=== PATIENT | female | born 1965 | race Caucasian/White ===

== ENCOUNTER 2024-04-08 01:44 | Day surgery (SDC) | payer OTHER ==
[~2024-04-08 01:44] MED LIST: AMOCLA875 PO; Buspirone HCl15 MG PO; CHLO25 PO; CRUTCH4 USE; GABA300 PO; HYDHCL25 PO; K-Dur20 MEQ PO; MULVITMINE PO; MUPIROCIN1 G1 TOP; NARCAN4 M1; OXYC5 PO; PROACE100 PO; PROP10 PO; QUET300 PO; SPIR25 PO; SUMA25 PO; VISBIOME 112.51 EACH PO; Zofran Odt4 MG SL
== END 2024-04-09 02:39 | disposition home or self-care (01) ==
LOC: WOUND 01:44
DX: S81.801A Unspecified open wound, right lower leg, initial encounter (principal)
CPT/HCPCS: G0463

== ENCOUNTER 2024-04-15 01:52 | Day surgery (SDC) | payer OTHER ==
[2024-04-15] MEDS ORDERED: Lidocaine HCl 4% Topical Soln 50 ML BTL ONE (12:35)
== END 2024-04-15 22:43 | disposition home or self-care (01) ==
LOC: WOUND 01:52
DX: S81.801D Unspecified open wound, right lower leg, subsequent encounter (principal); L03.115 Cellulitis of right lower limb; X58.XXXD Exposure to other specified factors, subsequent encounter
CPT/HCPCS: G0463

== ENCOUNTER 2024-04-22 02:58 | Day surgery (SDC) | payer OTHER ==
[2024-04-22] MEDS ORDERED: Lidocaine HCl 4% Topical Soln 50 ML BTL ONE (12:34)
== END 2024-04-22 23:10 | disposition home or self-care (01) ==
LOC: WOUND 02:58
DX: L03.115 Cellulitis of right lower limb (principal)

== ENCOUNTER 2024-04-29 03:20 | Day surgery (SDC) | payer OTHER ==
[2024-04-29] MEDS ORDERED: Lidocaine HCl 4% Topical Soln 50 ML BTL ONE (12:29)
== END 2024-04-29 23:00 | disposition home or self-care (01) ==
LOC: WOUND 03:20
DX: L03.115 Cellulitis of right lower limb (principal); I96 Gangrene, not elsewhere classified; G89.21 Chronic pain due to trauma; E87.6 Hypokalemia; D64.89 Other specified anemias
CPT/HCPCS: 36415; 80053; 85025; 87070; 87075; 87077; 87186; 87205; G0463

== ENCOUNTER 2024-05-06 04:51 | Day surgery (SDC) | payer OTHER ==
[2024-05-06] MEDS ORDERED: Lidocaine HCl 4% Topical Soln 50 ML BTL ONE (13:04)
== END 2024-05-06 23:00 | disposition home or self-care (01) ==
LOC: WOUND 04:51
DX: L03.115 Cellulitis of right lower limb (principal); I96 Gangrene, not elsewhere classified
CPT/HCPCS: G0463

== ENCOUNTER 2024-05-13 04:37 | Day surgery (SDC) | payer OTHER ==
[2024-05-13] MEDS ORDERED: Lidocaine HCl 4% Topical Soln 5 MLUDC ONE (14:20)
== END 2024-05-13 23:22 | disposition home or self-care (01) ==
LOC: WOUND 04:37
DX: L03.115 Cellulitis of right lower limb (principal); I96 Gangrene, not elsewhere classified
CPT/HCPCS: A9270

== ENCOUNTER 2024-07-11 21:13 | Inpatient (IN) | payer OTHER ==
[~2024-07-11] VITALS: Ht 175.3 cm; Wt 73.5 kg
[~2024-07-11 21:13] MED LIST changes: +IMITREX100 MG PO; -SUMA25 PO
[2024-07-11 21:51] LABS: BASOPHILS ABSOLUTE AUTO 0.04 K/mm3 (0.00-0.23); BASOPHILS PERCENT AUTO 0 % (0-2); EOSINOPHILS ABSOLUTE AUTO 0.04 K/mm3 (0.00-0.68); EOSINOPHILS PERCENT AUTO 0 % (0-6); Hematocrit 37.9 % (33.0-51.0); Hemoglobin 12.6 g/dL (11.5-16.0); IMMATURE GRAN ABSOLUTE AUTO 0.04 K/mm3 (0.00-0.10); IMMATURE GRAN PERCENT AUTO 0 % (0-1); LYMPHOCYTES ABSOLUTE AUTO 1.52 K/mm3 (0.84-5.20); LYMPHOCYTES PERCENT AUTO 11 % (21-46); MONOCYTES ABSOLUTE AUTO 0.52 K/mm3 (0.16-1.47); MONOCYTES PERCENT AUTO 4 % (4-13); Mean Corpuscular HGB 28.2 pg (26.0-34.0); Mean Corpuscular HGB Conc 33.2 g/dL (31.5-36.5); Mean Corpuscular Volume 85 fL (80-100); NEUTROPHILS ABSOLUTE AUTO 11.67 K/mm3 (1.96-9.15); NEUTROPHILS PERCENT AUTO 84 % (41-73); Platelet Count 288 K/mm3 (150-400); RDW Coefficient Variation 13.3 % (11.7-14.2); RDW Standard Deviation 41.2 fL (35.1-46.3); Red Blood Cell Count 4.47 M/mm3 (3.80-5.20); White Blood Cell Count 13.83 K/mm3 (4.00-11.30)
[2024-07-11 22:11] LABS: Albumin, Blood 3.5 g/dL (3.4-5.0); Albumin/Globulin Ratio 0.7 (0.8-1.8); Bilirubin, Total 0.3 mg/dL (0.1-1.0); Bun/Creatinine Ratio 22.2 (12.0-20.0); Calcium, Blood 9.2 mg/dL (8.5-10.1); Creatinine, Blood 0.81 mg/dL (0.40-1.00); Globulin, Blood 5.2 g/dL (2.2-4.0); Potassium, Blood 3.3 mmol/L (3.5-5.5); Total Protein, Blood 8.7 g/dL (6.4-8.2)
[2024-07-12] MEDS ORDERED: Morphine Sulfate 4 MG/1 ML Injection ONE (00:03)
[2024-07-12] MEDS ORDERED: Morphine Sulfate 4 MG/1 ML Injection IV ONE (00:05)
[2024-07-12] MEDS ORDERED: Acetaminophen 325 MG TABLET PO ONE (01:15)
[2024-07-12] MEDS ORDERED: Vancomycin HCL 1,250 MG in NS 250 ML IV ONE (01:20)
[2024-07-12] MEDS ORDERED: NS 1,000 ML IV SCH ×2 (01:20→04:30)
[2024-07-12] MEDS ORDERED: Piperacillin/Tazobactam Sod 4.5 GM in NS 100 ML IV ONE (01:20)
[2024-07-12] MEDS ORDERED: FLU VACC TS2024-25(6MOS UP)/PF 45 MCG/0.5 ML SYRINGE IM ONE (04:30)
[2024-07-12 06:42] LABS: BASOPHILS ABSOLUTE AUTO 0.04 K/mm3 (0.00-0.23); BASOPHILS PERCENT AUTO 0 % (0-2); EOSINOPHILS ABSOLUTE AUTO 0.01 K/mm3 (0.00-0.68); EOSINOPHILS PERCENT AUTO 0 % (0-6); Hematocrit 32.3 % (33.0-51.0); Hemoglobin 10.8 g/dL (11.5-16.0); IMMATURE GRAN ABSOLUTE AUTO 0.08 K/mm3 (0.00-0.10); IMMATURE GRAN PERCENT AUTO 1 % (0-1); LYMPHOCYTES ABSOLUTE AUTO 1.64 K/mm3 (0.84-5.20); LYMPHOCYTES PERCENT AUTO 12 % (21-46); MONOCYTES ABSOLUTE AUTO 0.91 K/mm3 (0.16-1.47); MONOCYTES PERCENT AUTO 7 % (4-13); Mean Corpuscular HGB 28.4 pg (26.0-34.0); Mean Corpuscular HGB Conc 33.4 g/dL (31.5-36.5); Mean Corpuscular Volume 85 fL (80-100); NEUTROPHILS PERCENT AUTO 80 % (41-73); Platelet Count 214 K/mm3 (150-400); RDW Coefficient Variation 13.4 % (11.7-14.2); RDW Standard Deviation 41.7 fL (35.1-46.3); White Blood Cell Count 13.48 K/mm3 (4.00-11.30)
[2024-07-12 07:05] LABS: Albumin, Blood 2.7 g/dL (3.4-5.0); Albumin/Globulin Ratio 0.6 (0.8-1.8); Bilirubin, Total 0.7 mg/dL (0.1-1.0); Calcium, Blood 8.3 mg/dL (8.5-10.1); Creatinine, Blood 0.68 mg/dL (0.40-1.00); Globulin, Blood 4.2 g/dL (2.2-4.0); Total Protein, Blood 6.9 g/dL (6.4-8.2)
[2024-07-12] MEDS ORDERED: Acetaminophen 500 MG Tab PO PRN (07:50)
[2024-07-12] MEDS ORDERED: Enoxaparin 40 MG/0.4 ML SYR SC SCH (09:00)
[2024-07-12] MEDS ORDERED: Piperacillin/Tazobactam Sod 4.5 GM in NS 100 ML IV SCH ×2 (10:00→20:00)
[2024-07-12] MEDS ORDERED: OxyCODONE HCL 5 MG TAB PO PRN ×2 (11:10→16:45)
[2024-07-12] MEDS ORDERED: Vancomycin HCL 1,000 MG in NS 250 ML IV SCH (14:00)
[2024-07-12] MEDS ORDERED: OxyCODONE HCL 5 MG TAB PO SCH (16:44)
[2024-07-12 17:51] VITALS: BP 162/103
[2024-07-12] MEDS ORDERED: HyDROXyzine HCl 25 MG Tab PO PRN (18:40)
[2024-07-12 18:52] LABS: Bun/Creatinine Ratio 18.1 (12.0-20.0); Calcium, Blood 8.7 mg/dL (8.5-10.1); Creatinine, Blood 0.66 mg/dL (0.40-1.00); Magnesium, Blood 2.1 mg/dL (1.6-2.4); Potassium, Blood 3.2 mmol/L (3.5-5.5)
--- NOTE | 2024-07-12 18:58 | NUR ---
ADMISSION: PT ARRIVES FROM ER A&O, TRANSFERS SELF FROM [facility] TO BED, IMMEDIATELY STARTS ASKING FOR MEDICATION FOR HER ANXIETY. PROVIDER NOTIFIED, TO BEDSIDE, TO PLACE NEW ORDERS. PT DENIES SOB/CP, O2 SATS >92% ON RA, VSS. PT W/MULTIPLE SORES TO BACK AND RLE, IMAGING HAS BEEN COMPLETED, CT SCAN RESULTS PENDING TO HELP DEVELOP PLAN OF CARE. PT PROVIDED WITH FOOD AND BEVERAGE WHILE PLAN IS PENDING.
[2024-07-12] MEDS ORDERED: Potassium Chloride 20 MEQ TabCR PO ONE (19:40)
[2024-07-12] MEDS ORDERED: Morphine Sulfate 4 MG/1 ML Injection IV PRN (19:45)
[2024-07-12 20:07] VITALS: BP 140/91
[2024-07-12] MEDS ORDERED: Potassium Chloride 10 Meq Tablet SA PO ONE (21:30)
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
[2024-07-12 23:40] LABS: U Amphetamine Screen DETECTED; U Methamphetamine Screen DETECTED
[2024-07-12 23:41] LABS: U Barbituate Screen Not Detected; U Benzodiazapine Screen Not Detected; U Buprenorphine Screen Not Detected; U Cannabinoids Screen DETECTED; U Cocaine Screen Not Detected; U Methadone Screen Not Detected; U Opiates Screen DETECTED; U Oxycodone Screen DETECTED; U Phencyclidine Screen Not Detected
[2024-07-13] VITALS (12 sets, daily range): BP systolic 126–167; BP diastolic 74–109
[2024-07-13] MEDS ORDERED: NS 1,000 ML IV SCH
[2024-07-13] MEDS ORDERED: Ondansetron HCl 2 MG / ML 2ML Vial IV PRN (03:25)
--- NOTE | 2024-07-13 06:50 | NUR ---
SHIFT SUMMARY NO ACUTE EVENTS SINCE LAST NOTE. PT RESTED QUIETLY. ONE EPISODE OF NAUSEA, TREATED PER EMAR. DRESSING C/D/I.
[2024-07-13] MEDS ORDERED: Vancomycin HCL 1,000 MG in NS 250 ML IV SCH (08:00)
[2024-07-13 08:58] LABS: BASOPHILS ABSOLUTE AUTO 0.04 K/mm3 (0.00-0.23); BASOPHILS PERCENT AUTO 1 % (0-2); EOSINOPHILS ABSOLUTE AUTO 0.12 K/mm3 (0.00-0.68); EOSINOPHILS PERCENT AUTO 2 % (0-6); Hematocrit 35.7 % (33.0-51.0); Hemoglobin 11.8 g/dL (11.5-16.0); IMMATURE GRAN ABSOLUTE AUTO 0.02 K/mm3 (0.00-0.10); IMMATURE GRAN PERCENT AUTO 0 % (0-1); LYMPHOCYTES ABSOLUTE AUTO 2.22 K/mm3 (0.84-5.20); LYMPHOCYTES PERCENT AUTO 33 % (21-46); MONOCYTES ABSOLUTE AUTO 0.64 K/mm3 (0.16-1.47); MONOCYTES PERCENT AUTO 10 % (4-13); Mean Corpuscular HGB 28.2 pg (26.0-34.0); Mean Corpuscular HGB Conc 33.1 g/dL (31.5-36.5); Mean Corpuscular Volume 85 fL (80-100); NEUTROPHILS ABSOLUTE AUTO 3.71 K/mm3 (1.96-9.15); NEUTROPHILS PERCENT AUTO 55 % (41-73); Platelet Count 236 K/mm3 (150-400); RDW Coefficient Variation 13.2 % (11.7-14.2); RDW Standard Deviation 41.6 fL (35.1-46.3); Red Blood Cell Count 4.18 M/mm3 (3.80-5.20); White Blood Cell Count 6.75 K/mm3 (4.00-11.30)
[2024-07-13 09:24] LABS: Bun/Creatinine Ratio 12.9 (12.0-20.0); Calcium, Blood 9.1 mg/dL (8.5-10.1); Creatinine, Blood 0.7 mg/dL (0.40-1.00); Potassium, Blood 3.4 mmol/L (3.5-5.5)
[2024-07-13] MEDS ORDERED: Lactated Ringer's 1,000 ML IV SCH (11:45)
[2024-07-13] MEDS ORDERED: Midazolam HCl 1MG / ML 2ML Vial ONE (14:01)
[2024-07-13] MEDS ORDERED: propofoL 20 ML IV ONE (14:01)
[2024-07-13] MEDS ORDERED: FentaNYL Citrate 50 MCG/ML 2 ML Injection ONE (14:01)
--- NOTE | 2024-07-13 14:49 | NUR ---
DR. BLACKWELL AT TO DO BLOCK PROCEDURE ON RLE. PT PLACED ON 2L NC AT 1450. 1MG IV VERSED GIVEN AT 1459. PROCEDURE START AT 1502. PT GIVEN 1MG IV VERSED AT 1508. PROCEDURE END AT 1511. PT TOLERATED PROCEDURE WELL. VSS THROUGHOUT. BLOCK NOTE COMPLETED.
[2024-07-13] MEDS ORDERED: Ketamine HCl 100 MG / ML 5ML Vial ONE (15:22)
[2024-07-13] MEDS ORDERED: Ondansetron HCl 2 MG / ML 2ML Vial ONE (16:05)
[2024-07-13] MEDS ORDERED: Dexamethasone Sod Phos 10 MG/ML 1ML VIAL ONE (16:05)
[2024-07-13] MEDS ORDERED: Bupivacaine HCl 0.25% 30 ML Injection ONE (16:05)
--- NOTE | 2024-07-13 17:55 | NUR ---
SHIFT SUMMARY PT IS ALERT AND ORIENTED X 4, SHE WAS ANXIOUS PRIOR TO I&D PROCEDURE BUT SINCE ARRIVAL TO PCU AT APPROX. 1700, SHE HAS APPEARED MUCH MORE RELAXED. VSS. RLE DRESSING APPEARS D/C/I, SHE IS WEIGHT BEARING TOLERATED ON R EXTREMETY. SHE HAS CALLED APPROPRIATELY. THIS RN TOOK WOUND PHOTOS THIS AM AND PHOTOS ARE IN CHART. SHE HAS DENIED PAIN SINCE ARRIVING FROM I&D PROCEDURE. CALL LIGHT IS W/IN REACH. BED ALARM ON.
[2024-07-14 07:48] LABS: BASOPHILS ABSOLUTE AUTO 0.02 K/mm3 (0.00-0.23); BASOPHILS PERCENT AUTO 0 % (0-2); EOSINOPHILS PERCENT AUTO 0 % (0-6); Hematocrit 33.3 % (33.0-51.0); IMMATURE GRAN ABSOLUTE AUTO 0.02 K/mm3 (0.00-0.10); IMMATURE GRAN PERCENT AUTO 0 % (0-1); LYMPHOCYTES ABSOLUTE AUTO 1.41 K/mm3 (0.84-5.20); LYMPHOCYTES PERCENT AUTO 22 % (21-46); MONOCYTES ABSOLUTE AUTO 0.43 K/mm3 (0.16-1.47); MONOCYTES PERCENT AUTO 7 % (4-13); Mean Corpuscular HGB 27.7 pg (26.0-34.0); Mean Corpuscular Volume 84 fL (80-100); Mean Platelet Volume 9.4 fL (9.1-12.4); NEUTROPHILS ABSOLUTE AUTO 4.68 K/mm3 (1.96-9.15); NEUTROPHILS PERCENT AUTO 71 % (41-73); Platelet Count 252 K/mm3 (150-400); RDW Coefficient Variation 12.8 % (11.7-14.2); RDW Standard Deviation 39.2 fL (35.1-46.3); Red Blood Cell Count 3.97 M/mm3 (3.80-5.20); White Blood Cell Count 6.56 K/mm3 (4.00-11.30)
[2024-07-14 07:54] LABS: Bun/Creatinine Ratio 29.8 (12.0-20.0); Calcium, Blood 8.9 mg/dL (8.5-10.1); Creatinine, Blood 0.71 mg/dL (0.40-1.00); Potassium, Blood 3.6 mmol/L (3.5-5.5)
[2024-07-14 07:57] LABS: Vancomycin, Trough 21.3 ug/mL (5.0-10.0)
[2024-07-14 08:03] VITALS: BP 148/88
--- NOTE | 2024-07-14 09:40 | NUR ---
ASSUMPTION NOTE: THIS RN TO ASSUME CARE OF PATIENT. PATIENT SITTIING UP IN BED EATING BREAKFAST UPON ASSESSMENT. PATIENT DENIED CHEST PAIN/PRESSURE OR FEELING SOB. PATIENT IS ANXIOUS BUT STATED NOT IN ANY PAIN. PATIENT HAS CALL LIGHT WITHIN REACH AND BED AT THE LOWEST POSITION.
[2024-07-14] MEDS ORDERED: Vancomycin HCL 1,250 MG in NS 250 ML IV SCH (12:00)
--- NOTE | 2024-07-14 12:32 | NUR ---
MD TO BEDSIDE: MD CAME TO BEDSIDE TO ASSESS PATIENT AND TALK ABOUT PLAN. PATIENT BECAME TEARFUL AND EXPRESSED HER CONCERNS THAT SHE WAS NOT READY TO GO AND SHE NEEDED A COUPLE MORE DAYS TO REGAIN HER STRENGTH. SHE ALSO MENTIONED SOME MEDICAITONS SHE TAKES AT HOME THAT SHE HAS BEEN OUT OF FOR A WHILE NOW. MD TO LOOK AT MED REC AND PLACE ORDERS.
[2024-07-14 12:39] VITALS: BP 167/98
[2024-07-14] MEDS ORDERED: BusPIRone HCl 5 MG Tab PO PRN (12:45)
--- NOTE | 2024-07-14 13:35 | NUR ---
PATIENT IS GOING TO MEDICAL FLOOR AND REPORT WAS CALLED TO RECEIVING RN. PATIENT AWARE.
--- NOTE | 2024-07-14 14:42 | NUR ---
TRANSFER NOTE: PATIENT TRANSFERRED TO MEDICAL VIA WHEELCHAIR WITH ALL PERSONAL BELONGINGS. PATIENT IS ALERT AND ORIENTED X4 AND COOPERATIVE WITH HER CARE. IS ANXIOUS AND EASILY AGITATED. PATIENT IS MEDICAL NO TELE AND ORDERS WERE DISCONTINUED.
[2024-07-14 15:18] VITALS: BP 155/90
[2024-07-14 18:31] VITALS: BP 161/99
[2024-07-14] MEDS ORDERED: Ketorolac Tromethamine 15mg Vial IV PRN (19:40)
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
[2024-07-14] MEDS ORDERED: NS 250 ML IV PRN (20:15)
[2024-07-14] MEDS ORDERED: QUEtiapine Fumarate 300 MG Tab PO SCH (21:00)
[2024-07-14] MEDS ORDERED: Lactobacil 2-S.Thermo-Bifido 1 1 Cap PO SCH (21:00)
[2024-07-14] MEDS ORDERED: Lidocaine 4% 1 Patch TOP SCH (21:00)
[2024-07-14 21:17] VITALS: BP 144/89
[2024-07-15 02:52] VITALS: BP 132/82
[2024-07-15] MEDS ORDERED: Piperacillin/Tazobactam Sod 4.5 GM in NS 100 ML IV SCH (04:00)
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
[2024-07-15 07:42] VITALS: BP 163/89
[2024-07-15 08:16] LABS: BASOPHILS ABSOLUTE AUTO 0.03 K/mm3 (0.00-0.23); BASOPHILS PERCENT AUTO 1 % (0-2); EOSINOPHILS ABSOLUTE AUTO 0.14 K/mm3 (0.00-0.68); EOSINOPHILS PERCENT AUTO 2 % (0-6); Hematocrit 31.7 % (33.0-51.0); Hemoglobin 10.6 g/dL (11.5-16.0); IMMATURE GRAN ABSOLUTE AUTO 0.02 K/mm3 (0.00-0.10); IMMATURE GRAN PERCENT AUTO 0 % (0-1); LYMPHOCYTES ABSOLUTE AUTO 2.68 K/mm3 (0.84-5.20); LYMPHOCYTES PERCENT AUTO 43 % (21-46); MONOCYTES ABSOLUTE AUTO 0.44 K/mm3 (0.16-1.47); MONOCYTES PERCENT AUTO 7 % (4-13); Mean Corpuscular HGB 28.6 pg (26.0-34.0); Mean Corpuscular HGB Conc 33.4 g/dL (31.5-36.5); Mean Corpuscular Volume 86 fL (80-100); Mean Platelet Volume 9.4 fL (9.1-12.4); NEUTROPHILS ABSOLUTE AUTO 2.86 K/mm3 (1.96-9.15); NEUTROPHILS PERCENT AUTO 46 % (41-73); Platelet Count 246 K/mm3 (150-400); RDW Coefficient Variation 13.2 % (11.7-14.2); RDW Standard Deviation 41.5 fL (35.1-46.3); White Blood Cell Count 6.17 K/mm3 (4.00-11.30)
[2024-07-15 08:35] LABS: Calcium, Blood 8.7 mg/dL (8.5-10.1); Creatinine, Blood 0.9 mg/dL (0.40-1.00)
[2024-07-15] MEDS ORDERED: Citalopram Hydrobromide 20 MG Tab PO SCH (09:00)
[2024-07-15 16:04] VITALS: BP 168/100
--- NOTE | 2024-07-15 19:00 | NUR ---
NO CHANGES IN PT STATUS TODAY. PT HAD C/O PAIN THROUGHTOUT THE SHIFT. SEE EMAR FOR DETAILS. PT HAS NO QUESTIONS OR CONCERNS AT THIS TIME
[2024-07-15 21:01] VITALS: BP 162/90
[2024-07-16 05:15] VITALS: BP 117/88
[2024-07-16 06:11] LABS: BASOPHILS ABSOLUTE AUTO 0.03 K/mm3 (0.00-0.23); BASOPHILS PERCENT AUTO 1 % (0-2); EOSINOPHILS ABSOLUTE AUTO 0.14 K/mm3 (0.00-0.68); EOSINOPHILS PERCENT AUTO 3 % (0-6); Hematocrit 32.7 % (33.0-51.0); Hemoglobin 10.6 g/dL (11.5-16.0); Mean Corpuscular HGB Conc 32.4 g/dL (31.5-36.5); Mean Corpuscular Volume 87 fL (80-100); Mean Platelet Volume 9.2 fL (9.1-12.4); Platelet Count 252 K/mm3 (150-400); RDW Coefficient Variation 13.3 % (11.7-14.2); RDW Standard Deviation 41.8 fL (35.1-46.3); Red Blood Cell Count 3.78 M/mm3 (3.80-5.20); White Blood Cell Count 4.82 K/mm3 (4.00-11.30)
[2024-07-16 06:12] LABS: IMMATURE GRAN ABSOLUTE AUTO 0.02 K/mm3 (0.00-0.10); IMMATURE GRAN PERCENT AUTO 0 % (0-1); LYMPHOCYTES ABSOLUTE AUTO 2.08 K/mm3 (0.84-5.20); LYMPHOCYTES PERCENT AUTO 43 % (21-46); MONOCYTES ABSOLUTE AUTO 0.37 K/mm3 (0.16-1.47); MONOCYTES PERCENT AUTO 8 % (4-13); NEUTROPHILS ABSOLUTE AUTO 2.18 K/mm3 (1.96-9.15); NEUTROPHILS PERCENT AUTO 45 % (41-73)
[2024-07-16 06:35] LABS: Bun/Creatinine Ratio 35.1 (12.0-20.0); Creatinine, Blood 0.83 mg/dL (0.40-1.00); Potassium, Blood 4.1 mmol/L (3.5-5.5)
[2024-07-16 06:43] LABS: BASOPHILS PERCENT MAN 0 % (0-2); EOSINOPHILS ABSOLUTE MAN 0.24 K/mm3 (0.00-0.68); EOSINOPHILS PERCENT MAN 5 % (0-6); LYMPHOCYTES % ATYPICAL MANUAL 10 % (0-0); LYMPHOCYTES ABSOLUTE MAN 2.31 K/mm3 (0.84-5.20); LYMPHOCYTES PERCENT MAN 38 % (21-46); MONOCYTES ABSOLUTE MAN 0.24 K/mm3 (0.16-1.47); MONOCYTES PERCENT MAN 5 % (4-13); NEUTROPHILS ABSOLUTE MAN 2.02 K/mm3 (1.96-9.15); SEG NEUTROPHILS PERCENT MAN 42 % (41-73); TOTAL CELLS COUNTED 100
--- NOTE | 2024-07-16 07:18 | NUR ---
CORN GRINDER SUMMARY NO ACUTE CHANGES OVERNIGHT. PT CONTINUES TO COMPLAIN OF PAIN IN HER R ANKLE. WOUND CARE DONE ON DAY SHIFT.
[2024-07-16 07:46] VITALS: BP 131/91
[2024-07-16 16:42] VITALS: BP 190/110
--- NOTE | 2024-07-16 17:13 | NUR ---
NO CHANGES IN PT STAUS. PT HAD C/O PAIN THROUGHOUT THE SHIFT. SEE EMAR FOR DETAILS. THIS NURSE CALLED FOR ORTHO CONSULT AND MD IS ON VACATION TILL FRIDAY. LEFT MESSAGE AT OFFICE.
[2024-07-16 19:50] VITALS: BP 171/101
[2024-07-16 20:01] VITALS: BP 154/88
[2024-07-17 03:27] VITALS: BP 125/78
[2024-07-17 07:31] VITALS: BP 147/97
[2024-07-17 15:21] VITALS: BP 153/86
--- NOTE | 2024-07-17 17:14 | NUR ---
NO ACUTE CHANGES TREATED FOR PAIN PER EMAR. PT INDEPENDENT IN ROOM. NO DISTRESS NOTED CALL LIGHT WITHIN REACH WILL CONTINUE TO MONITOR.
[2024-07-17 19:29] VITALS: BP 156/103
[2024-07-18 03:40] VITALS: BP 147/87
--- NOTE | 2024-07-18 07:28 | NUR ---
PRINTED CIRCUIT BOARDS PLASMA ETCHER SUMMARY PT WAS SHOWERED AND HER WOUNDS WERE CLEANSED AND HER WOUNDS WERE DRESSED PER ORDERS. PT STILL COMPLAINS OF SIGNIFICANT PAIN WHEN HER PAIN MEDICATIONS WEAR OFF.
[2024-07-18 07:45] VITALS: BP 123/64
[2024-07-18 15:12] VITALS: BP 151/96
--- NOTE | 2024-07-18 16:35 | NUR ---
NO ACUTE CHANGES PT AOX4. DR THAKUR CAME TODAY AND CHECKED WOUND AND REWRAPPED. NO DISTRESS NOTED ABLE TO MAKE ALL NEEDS KNOWN. TREATED FOR R ANKLE PAIN PER EMAR. CALL LIGHT WITHIN REACH.
[2024-07-18 20:33] VITALS: BP 158/97
[2024-07-19 03:06] VITALS: BP 101/61
--- NOTE | 2024-07-19 03:42 | NUR ---
NO ACUTE CHANGES PT AOX4. DRESSING TO R ANKLE CHANGED BY MD ON DAY SHIFT (07/18/24). DRESSING C/D/I. PT INDEPENDENT WITH CARES AND BED MOBILITY. SBA WITH AMBULATING TO [facility] OR [facility] FOR CORD MANAGEMENT. NO DISTRESS NOTED ABLE TO MAKE ALL NEEDS KNOWN. TREATED FOR R ANKLE PAIN PER EMAR. IV ABX CONTINUE ORDERED, NO ADVERSE SIDE EFFECTS NOTED TO ABX TX. ANTICPATE D/C HOME 07/19/24. CALL LIGHT WITHIN REACH.
[2024-07-19 08:16] VITALS: BP 137/92
[2024-07-19] MEDS ORDERED: ACET500 PO (13:43)
[2024-07-19] MEDS ORDERED: AMOCLA875 PO (13:44)
[2024-07-19] MEDS ORDERED: VISBIOME 112.51 EACH PO (13:45)
[2024-07-19] MEDS ORDERED: Celexa20 MG PO (13:46)
[2024-07-19] MEDS ORDERED: LIDO700A20 TOP (13:47)
--- NOTE | 2024-07-19 14:48 | NUR ---
PT DISCHARGED HOME WITH FRIEND. WOUND BANDAGE REPLACED BY THIS RN, EDUCATION PROVIDED. ALL BELONGINGS SENT WITH PT.
== END 2024-07-19 14:47 | disposition home health service (06) | DRG 854 ==
LOC: ER 21:13 → ERHOLD 21:14 → MEDS 07-12 15:17 → PCU 07-12 15:17 → MEDS 07-12 15:17 → PCU 07-12 17:54 → MEDS 07-14 14:11
PROVIDERS: Family Medicine; Physician Assistant; Student in an Organized Health Care Education/Training Program; ADMIT Internal Medicine
PROC: 3E03329 Introduction of Other Anti-infective into Peripheral Vein, Percutaneous Approach (ICD-10-PCS; 2024-07-12)
PROC: 0JBQ0ZZ Excision of Right Foot Subcutaneous Tissue and Fascia, Open Approach (ICD-10-PCS; principal; 2024-07-15)
DX: A41.01 Sepsis due to Methicillin susceptible Staphylococcus aureus (principal); F10.239 Alcohol dependence with withdrawal, unspecified; L03.115 Cellulitis of right lower limb; L02.415 Cutaneous abscess of right lower limb; M86.9 Osteomyelitis, unspecified; I10 Essential (primary) hypertension; F15.10 Other stimulant abuse, uncomplicated; M25.511 Pain in right shoulder; E87.6 Hypokalemia; F32.A Depression, unspecified; F41.9 Anxiety disorder, unspecified; D64.9 Anemia, unspecified; M19.90 Unspecified osteoarthritis, unspecified site; Z79.891 Long term (current) use of opiate analgesic; Z79.2 Long term (current) use of antibiotics; Z79.899 Other long term (current) drug therapy; Z98.51 Tubal ligation status; Z98.890 Other specified postprocedural states; Z69.11 Encounter for mental health services for victim of spousal or partner abuse; Z91.414 Personal history of adult intimate partner abuse
CPT/HCPCS: 36415; 73030; 73060; 73590; 73630; 73701; 80048; 80053; 80202; 83605; 83735; 84100; 84145; 85025; 87040; 87070; 87075; 87077; 87147; 87186; 87205; 94760; 94762; 96365; 96366; 96367; 96368; 96372-59; 96375; 97110; 97112; 97161; 97530; 99285-25; A9270; G0378; J1100; J1650; J1885; J2250; J2270; J2405; J2543; J2704; J3010; J3370; J7030; J7050; J7120; Q9967

== ENCOUNTER 2024-08-05 04:14 | Day surgery (SDC) | payer OTHER ==
[~2024-08-05 04:14] MED LIST changes: +ACET500 PO; +Celexa20 MG PO; +LIDO700A20 TOP
[2024-08-05] MEDS ORDERED: Lidocaine HCl 4% Cream 5 GM ONE (12:10)
== END 2024-08-05 23:00 | disposition home or self-care (01) ==
LOC: WOUND 04:14
DX: T81.31XD Disruption of external operation (surgical) wound, not elsewhere classified, subsequent encounter (principal); L97.812 Non-pressure chronic ulcer of other part of right lower leg with fat layer exposed; L97.312 Non-pressure chronic ulcer of right ankle with fat layer exposed; L03.115 Cellulitis of right lower limb; Y83.8 Other surgical procedures as the cause of abnormal reaction of the patient, or of later complication, without mention of misadventure at the time of the procedure
CPT/HCPCS: 87070; 87075; 87205; A6213; A9270; G0463